=== PATIENT | female | born 1950 | race Caucasian/White ===

== ENCOUNTER 2017-05-25 11:16 | Emergency (ER) | payer OTHER ==
[~2017-05-25] VITALS: Ht 154.9 cm; Wt 86.2 kg
[2017-05-25 12:16] LABS: BASOPHIL % 0.3 % (0-2); CARBON DIOXIDE 24.7 mmol/L (21-32); CHLORIDE SERUM 107 mmol/L (98-107); CREATININE SERUM 0.7 mg/dL (0.6-1.0); GFR1 > 60 mL/min; GLUCOSE SERUM 134 mg/dL (74-106); PLATELET COUNT 286 x10^3mcL (130-400); POTASSIUM SERUM 3.3 mmol/L (3.5-5.1); RED CELL DISTRIBUTION WIDTH 13.7 % (11.5-14.5); SODIUM SERUM 145 mmol/L (136-145)
[2017-05-25 12:30] LABS: ALBUMIN 3.9 g/dL (3.4-5.0); ALKALINE PHOSPHATASE 61 U/L (46-116); ALT/SGPT 66 U/L (14-59); AST/SGOT 52 U/L (15-37); BILIRUBIN TOTAL 0.85 mg/dL (0.20-1.00); CHOLESTEROL 164 mg/dL (<200); HDL CHOLESTEROL 56 mg/dL (40-60); TOTAL PROTEIN, SERUM 7.6 g/dL (6.4-8.2)
[2017-05-25 14:09] VITALS: BP 151/76
== END 2017-05-25 14:09 | disposition home or self-care (01) ==
LOC: ED 11:16
PROVIDERS: Emergency Medicine
DX: J20.9 Acute bronchitis, unspecified (principal); I10 Essential (primary) hypertension
CPT/HCPCS: 36415; 83880; Q0092

== ENCOUNTER 2017-06-02 09:01 | Emergency (ER) | payer OTHER ==
[~2017-06-02] VITALS: Ht 154.9 cm; Wt 84.4 kg
[2017-06-02 09:36] VITALS: BP 150/80
== END 2017-06-02 09:36 | disposition home or self-care (01) ==
LOC: ED 09:01
DX: R78.81 Bacteremia (principal); I10 Essential (primary) hypertension
CPT/HCPCS: 36415